=== PATIENT | female | born 1930 | race Two or more races ===

== ENCOUNTER 2019-06-29 13:46 | Inpatient (IN) | payer MEDICARE, BC ==
[~2019-06-29] VITALS: Ht 160 cm; Wt 82.6 kg
[~2019-06-29 13:46] MED LIST: ATEN50TA; FURO40TA4; LISI10TA2 PO
[2019-06-29 14:39] LABS: BASO % 1 % (0-3); EOS % 0 % (0-3); HEMATOCRIT 40.7 % (36.0-47.0); HEMOGLOBIN 13.7 g/dL (12.0-15.5); LYMPH # 0.6 x10^3/uL (1.0-4.8); LYMPH % 18 % (24-48); MEAN CORPUSCULAR HEMOGLOBIN 32 pg (25-35); MEAN CORPUSCULAR HGB CONC 34 g/dL (31-37); MEAN CORPUSCULAR VOLUME 95 fL (79-100); MONO # 0.2 x10^3/uL (0.0-1.1); MONO % 7 % (0-9); NEUT # 2.6 x10^3/uL (1.8-7.7); NEUT % 75 % (31-73); PLATELET COUNT 130 x10^3/uL (140-400); RED BLOOD COUNT 4.28 x10^6/uL (3.50-5.40); RED CELL DISTRIBUTION WIDTH 13.7 % (11.5-14.5); WHITE BLOOD COUNT 3.5 x10^3/uL (4.0-11.0)
--- NOTE | 2019-06-29 14:49 | EKG ---
[facility] [address] [place] [address] Test Date: 2019-06-29 Test Time: 14:14:28 Pat Name: VALERI RENE Department: Room: Gender: F Inside Technical Sales Representative: : 1930 Requested By: ROBB LESTER Order Number: [id number] Reading MD: Mras Hansen MD Measurements Intervals [place] Rate: 63 P: 37 SC: 188 QRS: -27 QRSD: 80 T: 12 QT: 428 QTc: 441 Interpretive Statements SINUS RHYTHM LEFTWARD AXIS NON SPECIFIC T ABNORMALITY Electronically Signed On 07-06-2019 11:34:39 CDT by Mars Hansen MD
[2019-06-29 14:52] LABS: CALCIUM 9.8 mg/dL (8.5-10.1); GFR 52.6; POTASSIUM 4.1 mmol/L (3.5-5.1)
--- NOTE | 2019-06-29 14:53 | RAD ---
EXAM: Head CT without contrast. HISTORY: Syncope. TECHNIQUE: Computed tomographic images of the head were obtained without contrast. *One or more of the following individualized dose reduction techniques were utilized for this examination: 1. Automated exposure control. 2. Adjustment of the mA and/or kV according to patient size. 3. Use of iterative reconstruction technique. COMPARISON: 04/21/2019. FINDINGS: There is no acute or subacute extra-axial or intraparenchymal hemorrhage. There is no mass effect or midline shift. There is no hydrocephalus. There are areas of decreased attenuation within the cerebral white matter, nonspecific and likely related to chronic small vessel disease. There is cerebral volume loss. The visualized portions of the orbits, paranasal sinuses and mastoid air cells are unremarkable. No suspicious calvarial lesion is seen. IMPRESSION: 1. No acute intracranial finding. Note is made that MRI is more sensitive for acute infarction. 2. Decreased attenuation within the cerebral white matter, a nonspecific finding likely due to chronic small vessel disease. Electronically signed by: Nubia Colon MD (06/29/2019 2:50 PM) [facility]
--- NOTE | 2019-06-29 14:53 | RAD ---
EXAM: Chest, single view. HISTORY: Syncope. COMPARISON: 04/21/2019 FINDINGS: A frontal view of the chest obtained. There is no infiltrate, pleural effusion or pneumothorax. The heart is normal in size for portable technique. IMPRESSION: No acute pulmonary finding. Electronically signed by: Nubia Colon MD (06/29/2019 2:51 PM) [facility]
--- NOTE | 2019-06-29 15:04 | PHYS DOC ---
Past Medical History Past Medical History: High Cholesterol, Hypertension, Other Additional Past Medical Histor: syconpe Past Surgical History: Knee Replacement Alcohol Use: None Drug Use: None Adult General Chief Complaint Chief Complaint: SYNCOPE HPI HPI Patient is a 88 year old female who presents with complaining of passing out. Patient was sitting on the chair and complaining of feeling of nausea. Patient's daughter states her face became stiff and her eyes was rolling back without biting her tongue or shaking of extremity that last about 30 seconds and then opened her eyes and stated that she was fine. Patient denies chest pain, shortness of breath, focal neuro deficit, headache, nausea and vomiting at this time. Patient had 1 episodes of the same problem at the end of March and was admitted at Hospital with negative evaluation and had 2 days of negative heart monitor. Patient denies history of seizure or head injury. Review of Systems Review of Systems Constitutional: Denies fever or chills [] Eyes: Denies change in visual acuity, redness, or eye pain [] HENT: Denies nasal congestion or sore throat [] Respiratory: Denies cough or shortness of breath [] Cardiovascular: No additional information not addressed in HPI [] GI: Denies abdominal pain, nausea, vomiting, bloody stools or diarrhea [] : Denies dysuria or hematuria [] Musculoskeletal: Denies back pain or joint pain [] Integument: Denies rash or skin lesions [] Neurologic: Denies headache, focal weakness or sensory changes [] Endocrine: Denies polyuria or polydipsia [] All other systems were reviewed and found to be within normal limits, except as documented in this note. Current Medications Current Medications Current Medications Medications (Trade) Dose Ordered Sig/Gladys Start Time Stop Time Status Last Admin Dose Admin Ceftriaxone Sodium (Rocephin) 1 gm 1X ONCE 06/29/19 16:00 06/29/19 16:01 DC Allergies Allergies Allergies Coded Allergies Type Severity Reaction Last Updated Verified Poymngi-Gwa-Xgk Reductase Inhibitor Allergy Mild NAUSEA 04/21/19 Yes Physical Exam Physical Exam Constitutional: Well developed, well nourished, mild distress, non-toxic appearance. [] HENT: Normocephalic, atraumatic. Eyes: PERRLA, EOMI, conjunctiva normal, no discharge. [] Neck: Normal range of motion, no tenderness, supple, no stridor. [] Cardiovascular:Heart rate regular rhythm, no murmur [] Lungs & Thorax: Bilateral breath sounds clear to auscultation [] Abdomen: Bowel sounds normal, soft, no tenderness, no masses, no pulsatile masses. [] Skin: Warm, dry, no erythema, no rash. [] Back: No tenderness, no CVA tenderness. [] Extremities: No tenderness, no cyanosis, no clubbing, ROM intact, no edema. [] Neurologic: Alert and oriented X 3, no focal deficits noted. [] Psychologic: Affect normal, judgement normal, mood normal. [] Current Patient Data Vital Signs Vital Signs Date Time Temp Pulse Resp B/P (MAP) Pulse Ox O2 Delivery O2 Flow Rate FiO2 06/29/19 15:39 59 20 111/75 (87) 97 Room Air 06/29/19 14:00 98.3 98.3 Lab Values Laboratory Tests Test 06/29/19 14:25 06/29/19 15:00 White Blood Count 3.5 x10^3/uL (4.0-11.0) L Red Blood Count 4.28 x10^6/uL (3.50-5.40) Hemoglobin 13.7 g/dL (12.0-15.5) Hematocrit 40.7 % (36.0-47.0) Mean Corpuscular Volume 95 fL (79-100) Mean Corpuscular Hemoglobin 32 pg (25-35) Mean Corpuscular Hemoglobin Concent 34 g/dL (31-37) Red Cell Distribution Width 13.7 % (11.5-14.5) Platelet Count 130 x10^3/uL (140-400) L Neutrophils (%) (Auto) 75 % (31-73) H Lymphocytes (%) (Auto) 18 % (24-48) L Monocytes (%) (Auto) 7 % (0-9) Eosinophils (%) (Auto) 0 % (0-3) Basophils (%) (Auto) 1 % (0-3) Neutrophils # (Auto) 2.6 x10^3/uL (1.8-7.7) Lymphocytes # (Auto) 0.6 x10^3/uL (1.0-4.8) L Monocytes # (Auto) 0.2 x10^3/uL (0.0-1.1) Eosinophils # (Auto) 0.0 x10^3/uL (0.0-0.7) Basophils # (Auto) 0.0 x10^3/uL (0.0-0.2) Sodium Level 147 mmol/L (136-145) H Potassium Level 4.1 mmol/L (3.5-5.1) Chloride Level 108 mmol/L (98-107) H Carbon Dioxide Level 31 mmol/L (21-32) Anion Gap 8 (6-14) Blood Urea Nitrogen 16 mg/dL (7-20) Creatinine 1.0 mg/dL (0.6-1.0) Estimated GFR (Cockcroft-Gault) 52.6 BUN/Creatinine Ratio 16 (6-20) Glucose Level 105 mg/dL (70-99) H Calcium Level 9.8 mg/dL (8.5-10.1) Magnesium Level 2.2 mg/dL (1.8-2.4) Total Bilirubin 0.5 mg/dL (0.2-1.0) Aspartate Amino Transferase (AST) 30 U/L (15-37) Alanine Aminotransferase (ALT) 35 U/L (14-59) Alkaline Phosphatase 89 U/L (46-116) Creatine Kinase 122 U/L (26-192) Troponin I Quantitative < 0.017 ng/mL (0.000-0.055) Total Protein 6.8 g/dL (6.4-8.2) Albumin 3.4 g/dL (3.4-5.0) Albumin/Globulin Ratio 1.0 (1.0-1.7) Urine Collection Type Unknown Urine Color Yellow Urine Clarity Clear Urine pH 6.0 Urine Specific [place] 1.015 Urine Protein Negative mg/dL (NEG-TRACE) Urine Glucose (UA) Negative mg/dL (NEG) Urine Ketones (Stick) Negative mg/dL (NEG) Urine Blood Negative (NEG) Urine Nitrite Negative (NEG) Urine Bilirubin Negative (NEG) Urine Urobilinogen Dipstick 0.2 mg/dL (0.2 mg/dL) Urine Leukocyte Esterase Moderate (NEG) Urine RBC 0 /HPF (0-2) Urine WBC 5-10 /HPF (0-4) Urine Squamous Epithelial Cells Mod /LPF Urine Bacteria 0 /HPF (0-FEW) Urine Mucus Slight /LPF Laboratory Tests 06/29/19 14:25 Laboratory Tests 06/29/19 14:25 EKG EKG EKG interpreted by me. EKG at 1440 showed normal sinus rhythm, left fourth axis, nonspecific T-wave abnormalities, no acute ST and T-wave abnormalities. Radiology/Procedures Radiology/Procedures [][facility] [id number] [place] [address] IMAGING REPORT Signed PATIENT: VALERI RENE ACCOUNT: [id number] : 1930 LOCATION: ER AGE: 88 SEX: F EXAM STATUS: REG ER ORD. PHYSICIAN: ROBB LESTER MD REASON: syncope,15 PROCEDURE: PORTABLE CHEST 1V EXAM: Chest, single view. HISTORY: Syncope. COMPARISON: 04/21/2019 FINDINGS: A frontal view of the chest obtained. There is no infiltrate, pleural effusion or pneumothorax. The heart is normal in size for portable technique. IMPRESSION: No acute pulmonary finding. Electronically signed by: Nubia Vegas MD (06/29/2019 2:51 PM) [place] [id number] DICTATED and SIGNED BY: NUBIA VEGAS MD DATE: 06/29/[address] [address] IMAGING REPORT Signed PATIENT: VALERI RENE ACCOUNT: [id number] : 1930 LOCATION: ER AGE: 88 SEX: F EXAM STATUS: REG ER ORD. PHYSICIAN: ROBB LESTER MD REASON: syncope PROCEDURE: CT HEAD WO CONTRAST EXAM: Head CT without contrast. HISTORY: Syncope. TECHNIQUE: Computed tomographic images of the head were obtained without contrast. *One or more of the following individualized dose reduction techniques were utilized for this examination: 1. Automated exposure control. 2. Adjustment of the mA and/or kV according to patient size. 3. Use of iterative reconstruction technique. COMPARISON: 04/21/2019. FINDINGS: There is no acute or subacute extra-axial or intraparenchymal hemorrhage. There is no mass effect or midline shift. There is no hydrocephalus. There are areas of decreased attenuation within the cerebral white matter, nonspecific and likely related to chronic small vessel disease. There is cerebral volume loss. The visualized portions of the orbits, paranasal sinuses and mastoid air cells are unremarkable. No suspicious calvarial lesion is seen. IMPRESSION: 1. No acute intracranial finding. Note is made that MRI is more sensitive for acute infarction. 2. Decreased attenuation within the cerebral white matter, a nonspecific finding likely due to chronic small vessel disease. Electronically signed by: Nubia Vegas MD (06/29/2019 2:50 PM) [place] [id number] DICTATED and SIGNED BY: NUBIA VEGAS MD DATE: 06/29/19 1781 Course & Med Decision Making Course & Med Decision Making Pertinent Labs and Imaging studies reviewed. (See chart for details) Evaluation of patient in ER showed 88-year-old female patient with recurrent syncopal episode. Patient had unremarkable physical exam, orthostatic vitals and labs except for mild UTI. Patient had another episode of syncope while she was in ER while and sitting. Patient requiring admission for further evaluation and treatment. Discussed with Dr. Egan who is in agreement with admission. Discussed findings and plan with patient and family, who acknowledge under standing and agreement. Dragon Disclaimer Dragon Disclaimer This electronic medical record was generated, in whole or in part, using a voice recognition dictation system. Departure Departure Impression: Primary Impression: Syncope Additional Impression: UTI (urinary tract infection) Disposition: ADMITTED INPATIENT Admitting Physician: ANKIT (Dr. Egan accepted admission at 1605) Condition: IMPROVED Referrals: UNKNOWN PCP NAME (PCP) Problem Qualifiers Primary Impression: Syncope Syncope type: unspecified Qualified Codes: R55 - Syncope and collapse Additional Impression: UTI (urinary tract infection) Urinary tract infection type: site unspecified Hematuria presence: without hematuria Qualified Codes: N39.0 - Urinary tract infection, site not specified ROBB LESTER MD Jun 29, 2019 15:04
[2019-06-29 15:06] LABS: ALBUMIN 3.4 g/dL (3.4-5.0); MAGNESIUM 2.2 mg/dL (1.8-2.4); TOTAL BILIRUBIN 0.5 mg/dL (0.2-1.0); TOTAL PROTEIN 6.8 g/dL (6.4-8.2)
[2019-06-29 15:10] LABS: BILIRUBIN,URINE NEGATIVE (NEG); CLARITY,URINE CLEAR; COLOR,URINE YELLOW; NITRITE,URINE NEGATIVE (NEG); PROTEIN,URINE NEGATIVE (NEG-TRACE); UROBILINOGEN,URINE 0.2 mg/dL (0.2 mg/dL)
[2019-06-29 15:15] LABS: BACTERIA,URINE 0 /HPF (0-FEW); RBC,URINE 0 /HPF (0-2); SQUAMOUS EPITHELIAL CELL,UR MOD /LPF
[2019-06-29] MEDS ORDERED: cefTRIAXone IV Push 1 GM VIAL. IVP ONE (16:00)
[2019-06-29] MEDS ORDERED: POTA10TA12 PO (16:53)
[2019-06-29] MEDS ORDERED: MULT1TAB52 PO (16:54)
[2019-06-29 19:03] VITALS: BP 141/74
--- NOTE | 2019-06-29 20:40 | NUR ---
Patient's granddaughter, Yue, called out sfdc solution architect light stating patient was having "another episode". This nurse, went into room, patient's head leaned back, eyes closed as if she was asleep. Patient aroused by light sternal rub and name. Patient stated "[place] like I was asleep". Patient's granddaughter stated episode lasted about 10 seconds. Patient states she felt nauseous right before "falling asleep". Patient alert and oriented x4, after awoken. No complaints further complaints at this time. Dr. Jignesh clayton. Will continue to monitor.
--- NOTE | 2019-06-29 20:45 | HP ---
ADMIT DATE: 06/29/2019 CHIEF COMPLAINT: Syncope. HISTORY OF PRESENT ILLNESS: The patient is a pleasant 88-year-old female who keeps passing out. She was sitting in a chair. She complains of some nausea and passed out. The daughter states her face became stiff and her eyes were rolling back, lasted about 30 seconds. This also occurred in March. She was monitored for 2 days in the hospital at that time, but we were not able to discover what was causing it. I discussed the case with the ER physician. We are going to admit the patient and consult Cardiology and Neurology. PAST MEDICAL HISTORY: Previous syncope, hypertension, hyperlipidemia, and knee replacement. ALLERGIES: STATINS. FAMILY HISTORY: Coronary artery disease. SOCIAL HISTORY: She does not drink, smoke, or take drugs. She is retired. MEDICATIONS: Reviewed, please refer to the MRAD. REVIEW OF SYSTEMS: GENERAL: No history of weight change, weakness or fevers. SKIN: No bruising, hair changes or rashes. EYES: No blurred, double or loss of vision. NOSE AND THROAT: No history of nosebleeds, hoarseness or sore throat. HEART: No history of palpitations, chest pain or shortness of breath on exertion. LUNGS: Denies cough, hemoptysis, wheezing or shortness of breath. GASTROINTESTINAL: Denies changes in appetite, nausea, vomiting, diarrhea or constipation. GENITOURINARY: No history of frequency, urgency, hesitancy or nocturia. NEUROLOGIC: Denies history of numbness, tingling, tremor or weakness. PSYCHIATRIC: No history of panic, anxiety or depression. ENDOCRINE: No history of heat or cold intolerance, polyuria or polydipsia. EXTREMITIES: Denies muscle weakness, joint pain, pain on walking or stiffness. PHYSICAL EXAMINATION: VITALS: Within normal limits and are stable. GENERAL: No apparent distress. Alert and oriented. HEENT: Head is normocephalic, atraumatic, pupils were equally round and reactive to light and accommodation. NECK: Supple, no JVD, no thyromegaly was noted. LUNGS: Clear to auscultation in all lung james without rhonchi or wheezing. HEART: RRR, S1, S2 present. Peripheral pulses intact, no obvious murmurs were noted. ABDOMEN: Soft, nontender. Positive bowel sounds no organomegaly, normal bowel sounds. EXTREMITIES: Without any cyanosis, clubbing, or edema. Pedal pulses intact, Homans sign is negative. NEUROLOGIC: Normal speech, normal tone. A & O x3, moves all extremities, no obvious focal deficits. PSYCHIATRIC: Normal affect, normal mood. Stable. SKIN: No ulcerations or rashes, good skin turgor, no jaundice. VASCULAR: Good capillary refill, neurovascular bundle appears to be intact. LABORATORY DATA: White count is 3.5. Sodium is 147. Troponin is 0. ASSESSMENT AND PLAN: Syncope, rule out arrhythmia versus neurologic disease. The patient has been admitted. We will do cardiac monitoring. Consult Cardiology, consult Neurology. Home medications, deep vein thrombosis prophylaxis, physical therapy, occupational therapy, and IV fluids. JESS GUO DO DR: SCOTTY/ashanti JOB#: [id number] / [id number]
[2019-06-29] MEDS: POTASSIUM CHLORIDE 10 MEQ TABLET.ER. PO SCH (21:00)
[2019-06-29 23:18] VITALS: BP 147/68
[2019-06-30] VITALS (22 sets, daily range): BP systolic 103–150; BP diastolic 56–82
--- NOTE | 2019-06-30 00:16 | NUR ---
Late note input: After syncopal episode at 2039, reviewed tele monitor and noticed a pause during the time episode occurred. Blood pressure stable at 147/65. Called down to ICU to verify. Dr. Egan paged as well as cardiology. Received orders from Dr. Paolmo to keep patient NPO after midnight for possible tests in the morning and to continue to monitor. Patient had another episode around 2308. Again, another pause noted on Tele monitor. Patient arousable to name and light sternal rub. Blood pressure 130/63, heart rate [address] Palomo paged again. No response. Dr. Egan paged at 0009 after no response from Dr. Palomo. Dr. Egan gave ok to transfer to [facility].
--- NOTE | 2019-06-30 01:39 | NUR ---
Transferred from 6th floor room 650 for 10 second pause noted on tele monitor per report. Patient admit with Dx Syncope. Patient A/O x 4 on arrival. Pleasant. Denies pain or SOA. Skin WD&P. VSS. HR SB with rate of 57 on arrival. Quick combo pads in place. Resting in bed with call light at hand.
--- NOTE | 2019-06-30 03:19 | NUR ---
Spoke to Dr Palomo at this time. Patient had 18 seconds pause and unresponsive. Code Sudhir was called and then cancelled because patient became responsive after sternal rub and calling out her name. Orders to start Dopamine drip at 2.5 mcg/kg/min continuous. Do not titrate. Patient Alert and Orientated. "Oh did I do it again". VSS.
--- NOTE | 2019-06-30 03:29 | EKG ---
[facility] [address] [place] [address] Test Date: 2019-06-30 Test Time: 04:27:02 Pat Name: VALERI RENE Department: Room: 205 Gender: F Cloth Layer: MYLA : 1930 Requested By: SAROJ SNEED Order Number: [id number] Reading MD: Mars Hansen MD Measurements Intervals [place] Rate: 60 P: 53 DE: 196 QRS: -24 QRSD: 84 T: 5 QT: 452 QTc: 452 Interpretive Statements SINUS RHYTHM NON-SPECIFIC ST/T CHANGES Electronically Signed On 07-06-2019 11:37:45 CDT by Mars Hansen MD
[2019-06-30 08:57] LABS: PROTHROMBIN TIME PATIENT 12.6 SEC (11.7-14.0)
[2019-06-30] MEDS: MULTIVITAMIN with MINERAL TABLET. PO SCH (09:00)
[2019-06-30] MEDS: POTASSIUM CHLORIDE 10 MEQ TABLET.ER. PO SCH ×2 (09:00→21:18)
[2019-06-30] MEDS: FUROSEMIDE 40 MG TABLET. PO SCH (09:00)
[2019-06-30] MEDS: LISINOPRIL 10 MG TABLET PO SCH (09:00)
--- NOTE | 2019-06-30 09:32 | PDOC2 ---
CARDIAC CONSULT DATE OF CONSULT Date of Consult DATE: 06/30/19 TIME: 09:28 REASON FOR CONSULT Reason for Consult: syncope, bradycardia REFERRING PHYSICIAN Referring Physician: Jignesh SOURCE Source: Chart review, Patient HISTORY OF PRESENT ILLNESS HISTORY OF PRESENT ILLNESS This is a 88 yo female admitted for complains of passing out. She had 5 episodes of passing out yesterday. At times she had episodes of feeling flushed and nausea. No chest pain. No injuries related to her syncope. She did have episode where she rolled her eyes backward and became stiff. She had an 18 sec asystole as an inpt. No SOA. No focal symptoms nor hx of seizures. No bowel or bladder incontinence. PAST MEDICAL HISTORY Cardiovascular: HTN, Syncope, Hyperlipidemia CENTRAL NERVOUS SYSTEM: Other (No pertinent history) Musculoskeletal: Osteoarthritis Rheumatologic: No pertinent hx Infectious disease: No pertinent hx PAST SURGICAL HISTORY Past Surgical History: Total knee replacement (left) FAMILY HISTORY Family History: Hypertension SOCIAL HISTORY Smoke: No ALCOHOL: none Drugs: None Lives: with Family CURRENT MEDICATIONS CURRENT MEDICATIONS Current Medications Medications (Trade) Dose Ordered Sig/Gladys Route PRN Reason Start Time Stop Time Status Last Admin Dose Admin Ceftriaxone Sodium (Rocephin) 1 gm 1X ONCE IVP 06/29/19 16:00 06/29/19 16:01 DC 06/29/19 16:01 Dopamine HCl/ Dextrose 250 ml @ 0 mls/hr CONT PRN IV SEE I/O RECORD 06/30/19 03:15 06/30/19 03:43 ALLERGIES ALLERGIES: Coded Allergies: Lskukcl-Jib-Xiz Reductase Inhibitor (Verified Allergy, Mild, NAUSEA, 04/21/19) ROS Review of System 14 point ROS evaluated with pertinent positives noted per HPI PHYSICAL EXAM General: Alert, Oriented X3, Cooperative, No acute distress HEENT: Atraumatic, Mucous membr. moist/pink Lungs: Clear to auscultation, Normal air movement Heart: Regular rate (SR), Normal S1, Normal S2, Other (2/6 systolic murmur to LLS border) Abdomen: Soft, No tenderness Extremities: No cyanosis, No edema Skin: No breakdown, No significant lesion Neuro: Normal speech, Sensation intact Psych/Mental Status: Mental status NL, Mood NL MUSCULOSKELETAL: Osteoarthritic changes both hands VITALS/I&O VITALS/I&O: Vital Signs Date Time Temp Pulse Resp B/P (MAP) Pulse Ox O2 Delivery O2 Flow Rate FiO2 06/30/19 07:20 97.7 60 18 111/61 (78) 95 Room Air 97.7 I & O 06/29/19 06/29/19 06/30/19 15:00 23:00 07:00 Intake Total 0 ml Balance 0 ml LABS Lab: Laboratory Tests Test 06/29/19 14:25 06/29/19 15:00 06/30/19 08:35 White Blood Count 3.5 x10^3/uL (4.0-11.0) L Red Blood Count 4.28 x10^6/uL (3.50-5.40) Hemoglobin 13.7 g/dL (12.0-15.5) Hematocrit 40.7 % (36.0-47.0) Mean Corpuscular Volume 95 fL (79-100) Mean Corpuscular Hemoglobin 32 pg (25-35) Mean Corpuscular Hemoglobin Concent 34 g/dL (31-37) Red Cell Distribution Width 13.7 % (11.5-14.5) Platelet Count 130 x10^3/uL (140-400) L Neutrophils (%) (Auto) 75 % (31-73) H Lymphocytes (%) (Auto) 18 % (24-48) L Monocytes (%) (Auto) 7 % (0-9) Eosinophils (%) (Auto) 0 % (0-3) Basophils (%) (Auto) 1 % (0-3) Neutrophils # (Auto) 2.6 x10^3/uL (1.8-7.7) Lymphocytes # (Auto) 0.6 x10^3/uL (1.0-4.8) L Monocytes # (Auto) 0.2 x10^3/uL (0.0-1.1) Eosinophils # (Auto) 0.0 x10^3/uL (0.0-0.7) Basophils # (Auto) 0.0 x10^3/uL (0.0-0.2) Sodium Level 147 mmol/L (136-145) H Potassium Level 4.1 mmol/L (3.5-5.1) Chloride Level 108 mmol/L (98-107) H Carbon Dioxide Level 31 mmol/L (21-32) Anion Gap 8 (6-14) Blood Urea Nitrogen 16 mg/dL (7-20) Creatinine 1.0 mg/dL (0.6-1.0) Estimated GFR (Cockcroft-Gault) 52.6 BUN/Creatinine Ratio 16 (6-20) Glucose Level 105 mg/dL (70-99) H Calcium Level 9.8 mg/dL (8.5-10.1) Magnesium Level 2.2 mg/dL (1.8-2.4) Total Bilirubin 0.5 mg/dL (0.2-1.0) Aspartate Amino Transferase (AST) 30 U/L (15-37) Alanine Aminotransferase (ALT) 35 U/L (14-59) Alkaline Phosphatase 89 U/L (46-116) Creatine Kinase 122 U/L (26-192) Troponin I Quantitative < 0.017 ng/mL (0.000-0.055) Total Protein 6.8 g/dL (6.4-8.2) Albumin 3.4 g/dL (3.4-5.0) Albumin/Globulin Ratio 1.0 (1.0-1.7) Urine Collection Type Unknown Urine Color Yellow Urine Clarity Clear Urine pH 6.0 Urine Specific [place] 1.015 Urine Protein Negative mg/dL (NEG-TRACE) Urine Glucose (UA) Negative mg/dL (NEG) Urine Ketones (Stick) Negative mg/dL (NEG) Urine Blood Negative (NEG) Urine Nitrite Negative (NEG) Urine Bilirubin Negative (NEG) Urine Urobilinogen Dipstick 0.2 mg/dL (0.2 mg/dL) Urine Leukocyte Esterase Moderate (NEG) Urine RBC 0 /HPF (0-2) Urine WBC 5-10 /HPF (0-4) Urine Squamous Epithelial Cells Mod /LPF Urine Bacteria 0 /HPF (0-FEW) Urine Mucus Slight /LPF Prothrombin Time 12.6 SEC (11.7-14.0) Prothrombin Time INR 1.0 (0.8-1.1) Laboratory Tests 06/29/19 14:25 Laboratory Tests 06/29/19 14:25 ECHOCARDIOGRAM ECHOCARDIOGRAM <Conclusion> The left ventricle is normal size. The left ventricular systolic function is normal and the ejection fraction is within normal range. The Ejection Fraction is 55-60%. There is mild to moderate concentric left ventricular hypertrophy. There is no significant aortic valvular stenosis. Doppler and Color Flow revealed trace aortic regurgitation. Doppler and Color-flow revealed trace mitral regurgitation. Doppler and Color Flow revealed trace tricuspid regurgitation with an estimated PAP of 36 mmHg. DATE: 04/21/19 1509 ASSESSMENT/PLAN ASSESSMENT/PLAN 1. SSS with multiple syncope: 18 sec asystole 2. HTN: controlled 3. Seizure like episode: due to cerebral hypoperfusion Recommendations 1. PPM today, risks and benefits discussed and agreeable to proceed. 2. CT head without acute changes. No trauma related to her syncope. Neurology consult. RICHARDSON TAYLOR APRN Jun 30, 2019 09:32
[2019-06-30] MEDS: IV NORMAL SALINE 1000ML BAG 1,000 ML IV SCH (10:44)
[2019-06-30] MEDS ORDERED: LIDOCAINE 2%/EPI 1:100,000 20 ML VIAL. ONE (12:13)
[2019-06-30] MEDS ORDERED: fentaNYL PF VIAL 100 MCG/2 ML VIAL ONE (12:17)
[2019-06-30] MEDS ORDERED: MIDAZOLAM HCL/PF 2 MG/2 ML VIAL. ONE (12:17)
[2019-06-30] MEDS ORDERED: BACITRACIN 50,000 UNIT in IV NORMAL SALINE 250ML 250 ML IRR ONE (12:30)
[2019-06-30] MEDS ORDERED: IOHEXOL 300 MG/ML 100ML VIAL. ONE (12:37)
[2019-06-30] MEDS ORDERED: MIDAZOLAM HCL/PF 2 MG/2 ML VIAL. IV ONE (12:45)
[2019-06-30] MEDS ORDERED: fentaNYL PF VIAL 100 MCG/2 ML VIAL IV ONE (12:45)
[2019-06-30] MEDS ORDERED: IOHEXOL 300 MG/ML 100ML VIAL. IART ONE (12:45)
[2019-06-30] MEDS ORDERED: LIDOCAINE 2%/EPI 1:100,000 20 ML VIAL. IJ ONE (12:45)
--- NOTE | 2019-06-30 13:11 | PDOC ---
[employer] PROGRESS NOTE Chief Complaint Chief Complaint Syncope History of Present Illness History of Present Illness 06/30/19 Pt seen and examined at bedside Mild to moderate LV hypertrophy on ECG EF = 55-60% SSS with syncope on ECG Will proceed with PPM Charts and labs reviewed DW RN Vitals/I&O Vitals/I&O: Vital Signs Date Time Temp Pulse Resp B/P (MAP) Pulse Ox O2 Delivery O2 Flow Rate FiO2 06/30/19 12:45 16 06/30/19 10:27 97.6 61 114/63 (80) 96 Room Air 97.6 I & O 06/29/19 06/29/19 06/30/19 15:00 23:00 07:00 Intake Total 0 ml Balance 0 ml Physical Exam General: Alert, Oriented X3, Cooperative, No acute distress Heart: Other (sick sinus syndrome) Lungs: Clear Abdomen: Normal bowel sounds Extremities: No clubbing, No cyanosis Skin: No rashes, No breakdown Labs Labs: Laboratory Tests Test 06/29/19 14:25 06/29/19 15:00 06/30/19 08:35 White Blood Count 3.5 x10^3/uL (4.0-11.0) Red Blood Count 4.28 x10^6/uL (3.50-5.40) Hemoglobin 13.7 g/dL (12.0-15.5) Hematocrit 40.7 % (36.0-47.0) Mean Corpuscular Volume 95 fL (79-100) Mean Corpuscular Hemoglobin 32 pg (25-35) Mean Corpuscular Hemoglobin Concent 34 g/dL (31-37) Red Cell Distribution Width 13.7 % (11.5-14.5) Platelet Count 130 x10^3/uL (140-400) Neutrophils (%) (Auto) 75 % (31-73) Lymphocytes (%) (Auto) 18 % (24-48) Monocytes (%) (Auto) 7 % (0-9) Eosinophils (%) (Auto) 0 % (0-3) Basophils (%) (Auto) 1 % (0-3) Neutrophils # (Auto) 2.6 x10^3/uL (1.8-7.7) Lymphocytes # (Auto) 0.6 x10^3/uL (1.0-4.8) Monocytes # (Auto) 0.2 x10^3/uL (0.0-1.1) Eosinophils # (Auto) 0.0 x10^3/uL (0.0-0.7) Basophils # (Auto) 0.0 x10^3/uL (0.0-0.2) Sodium Level 147 mmol/L (136-145) Potassium Level 4.1 mmol/L (3.5-5.1) Chloride Level 108 mmol/L (98-107) Carbon Dioxide Level 31 mmol/L (21-32) Anion Gap 8 (6-14) Blood Urea Nitrogen 16 mg/dL (7-20) Creatinine 1.0 mg/dL (0.6-1.0) Estimated GFR (Cockcroft-Gault) 52.6 BUN/Creatinine Ratio 16 (6-20) Glucose Level 105 mg/dL (70-99) Calcium Level 9.8 mg/dL (8.5-10.1) Magnesium Level 2.2 mg/dL (1.8-2.4) Total Bilirubin 0.5 mg/dL (0.2-1.0) Aspartate Amino Transf (AST/SGOT) 30 U/L (15-37) Alanine Aminotransferase (ALT/SGPT) 35 U/L (14-59) Alkaline Phosphatase 89 U/L (46-116) Creatine Kinase 122 U/L (26-192) Troponin I Quantitative < 0.017 ng/mL (0.000-0.055) Total Protein 6.8 g/dL (6.4-8.2) Albumin 3.4 g/dL (3.4-5.0) Albumin/Globulin Ratio 1.0 (1.0-1.7) Urine Collection Type Unknown Urine Color Yellow Urine Clarity Clear Urine pH 6.0 Urine Specific [place] 1.015 Urine Protein Negative mg/dL (NEG-TRACE) Urine Glucose (UA) Negative mg/dL (NEG) Urine Ketones (Stick) Negative mg/dL (NEG) Urine Blood Negative (NEG) Urine Nitrite Negative (NEG) Urine Bilirubin Negative (NEG) Urine Urobilinogen Dipstick 0.2 mg/dL (0.2 mg/dL) Urine Leukocyte Esterase Moderate (NEG) Urine RBC 0 /HPF (0-2) Urine WBC 5-10 /HPF (0-4) Urine Squamous Epithelial Cells Mod /LPF Urine Bacteria 0 /HPF (0-FEW) Urine Mucus Slight /LPF Prothrombin Time 12.6 SEC (11.7-14.0) Prothromb Time International Ratio 1.0 (0.8-1.1) Thyroid Stimulating Hormone (TSH) 0.775 uIU/mL (0.358-3.74) Review of Systems Review of Systems: No nausea, no vomiting No chest pain, no palpitations Assessment and Plan Assessmemt and Plan Problems Medical Problems: (1) Syncope Status: Acute (2) UTI (urinary tract infection) Status: Acute Assessment Sick sinus syndrome Syncope Plan Cardiac monitoring PPM per cardiology PT/OT Wound care DVT prophylaxis Full code Comment Review of Relevant I have reviewed the following items stefano (where applicable) has been applied. Medications: Current Medications Medications (Trade) Dose Ordered Sig/Gladys Route PRN Reason Start Time Stop Time Status Last Admin Dose Admin Ceftriaxone Sodium (Rocephin) 1 gm 1X ONCE IVP 06/29/19 16:00 06/29/19 16:01 DC 06/29/19 16:01 Dopamine HCl/ Dextrose 250 ml @ 0 mls/hr CONT PRN IV SEE I/O RECORD 06/30/19 03:15 06/30/19 03:43 Cefazolin Sodium/ Dextrose 50 ml @ 100 mls/hr 1X ONCE IV 06/30/19 12:30 06/30/19 12:59 DC 06/30/19 12:30 Sodium Chloride 1,000 ml @ 60 mls/hr [id number] IV 06/30/19 10:30 06/30/19 10:44 Bacitracin 63251 unit/Sodium Chloride 250 ml @ 250 mls/hr 1X ONCE IRR 06/30/19 12:30 06/30/19 13:29 06/30/19 12:30 Heparin Sodium/ Sodium Chloride (HEPARIN for ARTERIAL LINE FLUSH) 1,000 unit 1X ONCE IART 06/30/19 12:45 06/30/19 12:46 DC 06/30/19 12:45 Midazolam HCl (Versed) 2 mg 1X ONCE IV 06/30/19 12:45 06/30/19 12:46 DC 06/30/19 12:45 Fentanyl Citrate (Fentanyl 2ml Vial) 100 mcg 1X ONCE IV 06/30/19 12:45 06/30/19 12:46 DC 06/30/19 12:45 Iohexol (Omnipaque 300 Mg/ml) 100 ml 1X ONCE IART 06/30/19 12:45 06/30/19 12:46 DC 06/30/19 12:45 Lidocaine/ Epinephrine (LIDOCAINE 2%-EPI 1:100,000 multi-dose) 20 ml 1X ONCE IJ 06/30/19 12:45 06/30/19 12:46 DC 06/30/19 12:45 JESS GUO III DO Jun 30, 2019 13:11
--- NOTE | 2019-06-30 13:55 | PDOC ---
MODERATE SEDATION ASSESSMENT RISKS/ALTERNATIVES Risks/Alternatives Risks and alternatives of this type of sedation and procedure discussed with: RISK/ALTERNATIVES: Patient H & P ON CHART H & P H & P on chart and reviewed for co-morbid conditions and appropriate labs. H&P ON CHART: Yes STATUS PREG STATUS ASSESSED: N/A MEDS/ALLERGIES REVIEWED Meds/Allergies Reviewed Medications and Allergies including time and route of recently administered narcotics and sedatives. MEDS/ALLERGIES REVIEWED: Yes ASA RATING ASA RATING: III AIRWAY ASSESSMENT Airway Assessment Airway patency, oral function limitations, presence of caps, crowns, dentures, partials, and ability to extend neck assessed. AIRWAY ASSESSMENT: Yes MALLAMPATI SCORE MALLAMPATI SCORE: II PRE-SEDATION ASSESSMENT PRE-SEDATION ASSESSMENT: Yes SAROJ SNEED MD Jun 30, 2019 13:55
[2019-06-30] MEDS ORDERED: NO ANTICOAGULANT THERAPY. MC PRN (14:00)
--- NOTE | 2019-06-30 14:14 | RAD ---
PORTABLE CHEST 1V Clinical indications: Post pacemaker placement COMPARISON: June 29, 2019. Findings: A bipolar atrioventricular pacemaker has been placed via a left subclavian approach. No pneumothorax or pleural effusion or pulmonary edema is seen. Mild left lung base atelectasis is seen. No lung consolidation is evident. Heart size is normal. Mediastinum and pulmonary vasculature and both horace are unremarkable. IMPRESSION: Placement of a pacemaker without pneumothorax. Mild left lung base atelectasis. Electronically signed by: Juventino Myers MD (06/30/2019 2:11 PM) [id number]
--- NOTE | 2019-06-30 14:32 | CARD ---
MR#: [id number] Date of Study: 06/30/2019 Ordering Physician: SAROJ PALOMO, Referring Physician: SAROJ PALOMO, Tech: APPROVED REPORT PROCEDURES Successful implantation of Biotronik dual-chamber permanent pacemaker fl time: 4.2 mins dose: 8.9 gy/cm2 contrast: 20 ml moderate sedation: 58 mins INDICATIONS Sick sinus syndrome, syncope and 18 second pause PROCEDURE After explaining the risks, benefits, and alternative options, informed consent was obtained from the patient. The patient was brought to the cardiac catheterization lab and the left chest and shoulder were prepp ed and draped in a sterile manner. 30 mL of 2% lidocaine was infiltrated into the skin and subcutaneous tissues for local anesthesia. An incision was made over the left infraclavicular fossa and using blunt dissection and cautery a pocke t was created. Initial attempts to obtain venous access using radiological landmarks were unsuccessfu l. Contrast injections were performed for subclavian venogram and venous access successfully obtained . 8 and 6 [place] sheaths were inserted. A Biotronik bipolar active fixation right ventricular lead model Solia, serial #[id number] was advanced under fluoroscopy guidance and the tip was positioned in the right ventricle apex. Following this, a Biotronik bipolar active fixation right atrial lead model Solia serial #[id number] was positioned in t he right atrial appendage under fluoroscopy guidance. The leads were secured into place and attached to a Biotronik dual-chamber permanent pacemaker generator model Eluna 8 -Anel Muñoz, serial #[id number] . This was placed in the pocket that was subsequently closed in 3 layers. Hemostasis was secured. The right ventricular lead showed a sensing amplitude of 5.2 mV, impedance of 643 ohms and a threshol d of 0.6 V. The right atrial lead showed a sensing amplitude of 2.8 mV, impedance of 429 ohms and a t hreshold of 1.0 V. Patient tolerated the procedure well. There were no immediate complications. CONCLUSION Successful implantation of Biotronik dual-chamber permanent pacemaker for symptomatic sick sinus synd [place]. Signed by : Saroj Palomo, Electronically Approved : 06/30/2019 14:31:54
--- NOTE | 2019-06-30 15:51 | NUR ---
SS following for discharge planning. SS reviewed pt chart. Pt is from home and is currently on room air. PT/OT ordered. SS will continue to follow for discharge planning.
--- NOTE | 2019-06-30 17:13 | PDOC2 ---
NEUROLOGY CONSULT Date of Admission Date of Admission DATE: 06/30/19 TIME: 17:00 Reason for Consult Reason for Consult: IMPRESSION: Syncope. SSS with 18 seconds pause. HTN. HLD. UTI. RECOMMENDATIONS/PLAN: Cardiology consulted. pacemaker placement on 06/30/19. Lab: see orders. EEG if needed. HISTORY OF PRESENT ILLNESS This is a 88-year-old female patient with history of HTN and HLD had syncopal spell described as LOC, eyes fixed, and passing out. Her daughter stated her face became stiff and her eyes was rolling back without biting her tongue or shaking of extremity that last about 30 seconds then opened her eyes stating she was fine except feeling of some nausea. Patient denies chest pain, shortness of breath, focal neuro deficit, headache, nausea and vomiting at this time. She had 5 such episodes of passing out on , so she came to ER of [facility] to seek medical attention. PAST MEDICAL HISTORY Cardiovascular: HTN, Syncope, Hyperlipidemia CENTRAL NERVOUS SYSTEM: Other (No pertinent history) Musculoskeletal: Osteoarthritis Rheumatologic: No pertinent hx Infectious disease: No pertinent hx PAST SURGICAL HISTORY Total knee replacement (left) FAMILY HISTORY Hypertension. ALLERGIES Coded Allergies: Ccajmfu-Dxp-Pwo Reductase Inhibitor (Verified Allergy, Mild, NAUSEA, 04/21/19) MEDICATIONS: Refer to [facility] [place] SOCIAL HISTORY: Lives at home. Denies current smoking, drinking, and illicit drug use. REVIEW OF SYSTEMS: Constitutional: Obese. Head: No traumatic brain or head injury. Skin: No edema, or rash. Ear: Tinnitus? Eyes: No vision loss or color blindness. Nose: No bleeding or purulent discharges. Hearing: Mild hearing decrease. Neck: No injury. Breast: No history of cancer, masses,or discharges. Cardiac: HTN, HLD. Pulmonary: No COPD. GI: No GERD. Urinary/genital: UTI. Endocrinologic: No cousin face, craniofacial dysmorphism, polydactyly. Skeletomuscular: No muscular atrophy, deformity. Neurological: see HP. Psychiatric: Denies drug use/abuse. Otherwise, not [id number] review of systems. PHYSICAL EXAMINATION: General appearance is in subacute distress. HEENT: Normocephalic and nontraumatic. Eyes, nose, ears, and throat are unremarkable. Neck is supple. No lymphadenopathy. No crepitus. Cardiovascular: S1, S2, regular rate and rhythm. Pulmonary: Clear to auscultation bilaterally. Abdomen: Bowel sounds are positive. Abdomen is soft, nontender, and nondistended. Extremities: No rash, lesions, or edema. No restriction of range of motion NEUROLOGICAL EXAMINATION: Awake. Oriented to time, place and person. PERRL. EOMI. CN: no focal findings. Muscle tone: within normal. Muscle strength: 5 DTR: 2 Plantar reflex: Neutral response bilaterally Gait: not examined in bed. Sensory exam: no abnormal findings. No cerebellar signs elicited. F-T-N test accurate. Current Medications Current Medications Current Medications Ceftriaxone Sodium (Rocephin) 1 gm 1X ONCE IVP Last administered on 06/29/19at 16:01; Start 06/29/19 at 16:00; Stop 06/29/19 at 16:01; Status DC Lisinopril (Prinivil) 10 mg DAILY PO ; Start 06/30/19 at 09:00 Potassium Chloride (Klor-Con) 10 meq BID PO ; Start 06/29/19 at 21:00 Multivitamins (Thera M Plus) 1 tab DAILY PO ; Start 06/30/19 at 09:00 Furosemide (Lasix) 40 mg DAILY PO ; Start 06/30/19 at 09:00 Dopamine HCl/ Dextrose 250 ml @ 0 mls/hr CONT PRN IV SEE I/O RECORD Last administered on 06/30/19at 03:43; Start 06/30/19 at 03:15 Cefazolin Sodium/ Dextrose 50 ml @ 100 mls/hr 1X ONCE IV Last administered on 06/30/19at 12:30; Start 06/30/19 at 12:30; Stop 06/30/19 at 12:59; Status DC Sodium Chloride 1,000 ml @ 60 mls/hr [id number] IV Last administered on 06/30/19at 10:44; Start 06/30/19 at 10:30 Bacitracin 13103 unit/Sodium Chloride 250 ml @ 250 mls/hr 1X ONCE IRR Last administered on 06/30/19at 12:30; Start 06/30/19 at 12:30; Stop 06/30/19 at 13:29; Status DC Lidocaine/ Epinephrine (LIDOCAINE 2%-EPI 1:100,000 multi-dose) 20 ml STK-MED ONCE .ROUTE ; Start 06/30/19 at 12:13; Stop 06/30/19 at 12:13; Status DC Midazolam HCl (Versed) 2 mg STK-MED ONCE .ROUTE ; Start 06/30/19 at 12:17; Stop 06/30/19 at 12:17; Status DC Fentanyl Citrate (Fentanyl 2ml Vial) 100 mcg STK-MED ONCE .ROUTE ; Start 06/30/19 at 12:17; Stop 06/30/19 at 12:17; Status DC Iohexol (Omnipaque 300 Mg/ml) 100 ml STK-MED ONCE .ROUTE ; Start 06/30/19 at 12:37; Stop 06/30/19 at 12:37; Status DC Heparin Sodium/ Sodium Chloride (HEPARIN for ARTERIAL LINE FLUSH) 1,000 unit 1X ONCE IART Last administered on 06/30/19at 12:45; Start 06/30/19 at 12:45; Stop 06/30/19 at 12:46; Status DC Midazolam HCl (Versed) 2 mg 1X ONCE IV Last administered on 06/30/19at 12:45; Start 06/30/19 at 12:45; Stop 06/30/19 at 12:46; Status DC Fentanyl Citrate (Fentanyl 2ml Vial) 100 mcg 1X ONCE IV Last administered on 06/30/19at 12:45; Start 06/30/19 at 12:45; Stop 06/30/19 at 12:46; Status DC Iohexol (Omnipaque 300 Mg/ml) 100 ml 1X ONCE IART Last administered on 06/30/19at 12:45; Start 06/30/19 at 12:45; Stop 06/30/19 at 12:46; Status DC Lidocaine/ Epinephrine (LIDOCAINE 2%-EPI 1:100,000 multi-dose) 20 ml 1X ONCE IJ Last administered on 06/30/19at 12:45; Start 06/30/19 at 12:45; Stop 06/30/19 at 12:46; Status DC Info (No Anticoagulant Therapy) 1 ea CONT PRN PRN MC PER PROTOCOL; Start 06/30/19 at 14:00 Cefazolin Sodium/ Dextrose 50 ml @ 100 mls/hr 1X ONCE IV ; Start 06/30/19 at 18:30; Stop 06/30/19 at 18:59 Active Scripts Active Lisinopril 10 Mg Tablet 10 Mg PO DAILY Reported Multivitamins (Multivitamin) 1 Each Tablet 1 Tab PO DAILY Klor-Con 10 (Potassium Chloride) 10 Meq Tablet.er 1 Tab PO BID Furosemide 40 Mg Tablet 40 DAILY Allergies Allergies: Allergies Coded Allergies Type Severity Reaction Last Updated Verified Zbswdhe-Kwn-Ujg Reductase Inhibitor Allergy Mild NAUSEA 04/21/19 Yes ROS Review of System The patient denies any associated fevers, chills, headache, ear pain, rhinorrhea, sore throat, stiff neck, productive cough, chest pain, shortness of breath, back or flank pain, abdominal pain, nausea, vomiting, diarrhea, constipation, dysuria, rash, numbness, weakness, tingling, incontinence, difficulty ambulating, or diaphoresis. Physical Exam Physical Exam General: Well developed, well nourished, no acute distress, well appearing HEENT: Pupils equally round and reactive to light, EOMI, no discharge, normal conjunctiva Neck: Supple, no nuchal rigidity, no JVD, trachea midline, no tenderness Cardiac: RRR, no murmurs, no gallops, no rubs Chest/Lungs: CTAB, no wheeze, no rhonchi, no crackles Abdomen: soft, non-distended, no guarding, no peritoneal signs, non-tender Back: No tenderness Extremities: no edema, pulses intact, non-tender,capillary refill <3 sec bilateral upper and lower extremities, Neuro: Alert and oriented x 4, no focal deficits, normal speech Vitals Vitals: Vital Signs Date Time Temp Pulse Resp B/P (MAP) Pulse Ox O2 Delivery O2 Flow Rate FiO2 06/30/19 14:35 97.4 73 18 115/60 (78) 94 Room Air 97.4 06/30/19 13:15 3.0 Labs Labs Laboratory Tests Test 06/29/19 14:25 06/29/19 15:00 06/30/19 08:35 White Blood Count 3.5 x10^3/uL (4.0-11.0) Red Blood Count 4.28 x10^6/uL (3.50-5.40) Hemoglobin 13.7 g/dL (12.0-15.5) Hematocrit 40.7 % (36.0-47.0) Mean Corpuscular Volume 95 fL (79-100) Mean Corpuscular Hemoglobin 32 pg (25-35) Mean Corpuscular Hemoglobin Concent 34 g/dL (31-37) Red Cell Distribution Width 13.7 % (11.5-14.5) Platelet Count 130 x10^3/uL (140-400) Neutrophils (%) (Auto) 75 % (31-73) Lymphocytes (%) (Auto) 18 % (24-48) Monocytes (%) (Auto) 7 % (0-9) Eosinophils (%) (Auto) 0 % (0-3) Basophils (%) (Auto) 1 % (0-3) Neutrophils # (Auto) 2.6 x10^3/uL (1.8-7.7) Lymphocytes # (Auto) 0.6 x10^3/uL (1.0-4.8) Monocytes # (Auto) 0.2 x10^3/uL (0.0-1.1) Eosinophils # (Auto) 0.0 x10^3/uL (0.0-0.7) Basophils # (Auto) 0.0 x10^3/uL (0.0-0.2) Sodium Level 147 mmol/L (136-145) Potassium Level 4.1 mmol/L (3.5-5.1) Chloride Level 108 mmol/L (98-107) Carbon Dioxide Level 31 mmol/L (21-32) Anion Gap 8 (6-14) Blood Urea Nitrogen 16 mg/dL (7-20) Creatinine 1.0 mg/dL (0.6-1.0) Estimated GFR (Cockcroft-Gault) 52.6 BUN/Creatinine Ratio 16 (6-20) Glucose Level 105 mg/dL (70-99) Calcium Level 9.8 mg/dL (8.5-10.1) Magnesium Level 2.2 mg/dL (1.8-2.4) Total Bilirubin 0.5 mg/dL (0.2-1.0) Aspartate Amino Transf (AST/SGOT) 30 U/L (15-37) Alanine Aminotransferase (ALT/SGPT) 35 U/L (14-59) Alkaline Phosphatase 89 U/L (46-116) Creatine Kinase 122 U/L (26-192) Troponin I Quantitative < 0.017 ng/mL (0.000-0.055) Total Protein 6.8 g/dL (6.4-8.2) Albumin 3.4 g/dL (3.4-5.0) Albumin/Globulin Ratio 1.0 (1.0-1.7) Urine Collection Type Unknown Urine Color Yellow Urine Clarity Clear Urine pH 6.0 Urine Specific [place] 1.015 Urine Protein Negative mg/dL (NEG-TRACE) Urine Glucose (UA) Negative mg/dL (NEG) Urine Ketones (Stick) Negative mg/dL (NEG) Urine Blood Negative (NEG) Urine Nitrite Negative (NEG) Urine Bilirubin Negative (NEG) Urine Urobilinogen Dipstick 0.2 mg/dL (0.2 mg/dL) Urine Leukocyte Esterase Moderate (NEG) Urine RBC 0 /HPF (0-2) Urine WBC 5-10 /HPF (0-4) Urine Squamous Epithelial Cells Mod /LPF Urine Bacteria 0 /HPF (0-FEW) Urine Mucus Slight /LPF Prothrombin Time 12.6 SEC (11.7-14.0) Prothromb Time International Ratio 1.0 (0.8-1.1) Thyroid Stimulating Hormone (TSH) 0.775 uIU/mL (0.358-3.74) Laboratory Tests Test 06/30/19 08:35 Prothrombin Time 12.6 SEC (11.7-14.0) Prothromb Time International Ratio 1.0 (0.8-1.1) Thyroid Stimulating Hormone (TSH) 0.775 uIU/mL (0.358-3.74) ANNY PENNY MD Jun 30, 2019 17:13
[2019-07-01 03:00] VITALS: BP 153/91
[2019-07-01] MEDS: IV NORMAL SALINE 1000ML BAG 1,000 ML IV SCH (03:10)
[2019-07-01 07:00] VITALS: BP 135/82
[2019-07-01] MEDS: POTASSIUM CHLORIDE 10 MEQ TABLET.ER. PO SCH (08:55)
[2019-07-01] MEDS: LISINOPRIL 10 MG TABLET PO SCH (08:55)
[2019-07-01] MEDS: FUROSEMIDE 40 MG TABLET. PO SCH (08:55)
[2019-07-01] MEDS: MULTIVITAMIN with MINERAL TABLET. PO SCH (08:55)
--- NOTE | 2019-07-01 09:26 | RAD ---
EXAM: Chest, 2 views. HISTORY: Pacemaker placement. COMPARISON: 06/30/2019. FINDINGS: 2 views of the chest are obtained. There is a left cardiac pacemaker with leads overlying expected position. There is no infiltrate or pleural effusion. There is no pneumothorax. The heart is normal in size. IMPRESSION: Dual lead left cardiac pacemaker overlying expected position. Electronically signed by: Nubia Colon MD (07/01/2019 9:23 AM) [id number]
--- NOTE | 2019-07-01 09:47 | PDOC ---
[employer] PROGRESS NOTE Chief Complaint Chief Complaint Syncope History of Present Illness History of Present Illness 07/01/19 Patient seen and examined Discussed with physical therapy Patient is doing better She refuses home health PPM placement completed on 06/30 Recommended discharge today Charts and labs reviewed EVELIA LANDRY 06/30/19 Pt seen and examined at bedside Mild to moderate LV hypertrophy on ECG EF = 55-60% SSS with syncope on ECG Will proceed with PPM Charts and labs reviewed EVELIA LANDRY Vitals/I&O Vitals/I&O: Vital Signs Date Time Temp Pulse Resp B/P (MAP) Pulse Ox O2 Delivery O2 Flow Rate FiO2 07/01/19 08:55 64 135/82 07/01/19 07:00 98.2 16 98 Room Air 98.2 06/30/19 20:00 2.0 I & O 06/30/19 06/30/19 07/01/19 14:59 22:59 06:59 Intake Total 240 ml 700 ml Balance 240 ml 700 ml Physical Exam General: Alert, Oriented X3, Cooperative, No acute distress Heart: Regular rate (SR), Normal S1, Normal S2, Other (2/6 systolic murmur to LLS border) Lungs: Clear Abdomen: Soft, No tenderness Extremities: No cyanosis, No edema Skin: No breakdown, No significant lesion Review of Systems Review of Systems: No nausea, no vomiting No chest pain, no palpitations Assessment and Plan Assessmemt and Plan Problems Medical Problems: (1) Syncope Status: Acute (2) UTI (urinary tract infection) Status: Acute Assessment Status post prior pacemaker placement Sick sinus syndrome Syncope Plan Cardiac monitoring PT/OT Wound care DVT prophylaxis Full code Discharge if approved by cardiology Comment Review of Relevant I have reviewed the following items stefano (where applicable) has been applied. Medications: Current Medications Medications (Trade) Dose Ordered Sig/Gladys Route PRN Reason Start Time Stop Time Status Last Admin Dose Admin Cefazolin Sodium/ Dextrose 50 ml @ 100 mls/hr 1X ONCE IV 06/30/19 12:30 06/30/19 12:59 DC 06/30/19 12:30 Sodium Chloride 1,000 ml @ 60 mls/hr [id number] IV 06/30/19 10:30 07/01/19 03:10 Bacitracin 64370 unit/Sodium Chloride 250 ml @ 250 mls/hr 1X ONCE IRR 06/30/19 12:30 06/30/19 13:29 DC 06/30/19 12:30 Heparin Sodium/ Sodium Chloride (HEPARIN for ARTERIAL LINE FLUSH) 1,000 unit 1X ONCE IART 06/30/19 12:45 06/30/19 12:46 DC 06/30/19 12:45 Midazolam HCl (Versed) 2 mg 1X ONCE IV 06/30/19 12:45 06/30/19 12:46 DC 06/30/19 12:45 Fentanyl Citrate (Fentanyl 2ml Vial) 100 mcg 1X ONCE IV 06/30/19 12:45 06/30/19 12:46 DC 06/30/19 12:45 Iohexol (Omnipaque 300 Mg/ml) 100 ml 1X ONCE IART 06/30/19 12:45 06/30/19 12:46 DC 06/30/19 12:45 Lidocaine/ Epinephrine (LIDOCAINE 2%-EPI 1:100,000 multi-dose) 20 ml 1X ONCE IJ 06/30/19 12:45 06/30/19 12:46 DC 06/30/19 12:45 Cefazolin Sodium/ Dextrose 50 ml @ 100 mls/hr 1X ONCE IV 06/30/19 18:30 06/30/19 18:59 DC 06/30/19 18:20 JESS GUO III DO Jul 01, 2019 09:46
[2019-07-01 11:00] VITALS: BP 107/70
--- NOTE | 2019-07-01 11:17 | SNU/HH DC ---
DISCHARGE WITH HOME HEALTH DISCHARGE INFORMATION: Final Diagnosis: Problems Medical Problems: (1) Syncope Status: Acute (2) UTI (urinary tract infection) Status: Acute Condition on Discharge: Stable CODE STATUS: Code Status: Full HOME HEALTH: Face to Face: I certify this patient is under my care and that I, or a nurse practitioner or physician's infertility medical assistant working with me, had a face to face encounter that meets the physician face to face encounter requirements with this patient on []. Medical Complications: CHF RN For Eval/Treatment: Yes Physical Therapy For: Evalulation/Treatment Occupational Therapy For: Evaluation/Treatment Home Health Aide For: Self-care FACTORY MAINTENANCE TECHNICIAN For: Community Resources Pt Meets Homebound Status: Extreme weakness w/ amb. POST DISCHARGE ORDERS: Activity Instructions for Disc: No restrictions Weight Bearing Status after Di: As tolerated DIET AFTER DISCHARGE: Cardiac CHECKS AFTER DISCHARGE: Checks after discharge: Check blood press - daily, Weigh Yourself Daily TREATMENT/EQUIPMENT ORDERS: Adaptive Equipment Issued: None CERTIFICATION STATEMENT: Certification Statement: Certification Statement: Based on the above finding, I certify that this patient is confined to the home and needs intermittent nursing home care, physical therapy and/or speech therapy, or continues to need occupational therapy.~ This patient is under my care, and I have initiated the establishment of the plan of care.~ This patient will be followed by myself or a community physician who will periodically review the plan of care. Home Meds Active Scripts Lisinopril (LISINOPRIL) 10 Mg Tablet, 10 MG PO DAILY for htn, #60 TAB Prov:AYDEE VELIZ MD 04/23/19 Reported Medications Multivitamin (MULTIVITAMINS) 1 Each Tablet, 1 TAB PO DAILY for supplement, #90 TAB 3 Refills 06/29/19 Potassium Chloride (KLOR-CON 10) 10 Meq Tablet.er, 1 TAB PO BID for supplement, #30 TAB 5 Refills 06/29/19 Furosemide (FUROSEMIDE) 40 Mg Tablet, 40 DAILY for hypertension 04/21/19 JESS GUO III DO Jul 01, 2019 11:17
--- NOTE | 2019-07-01 13:31 | NUR ---
SS following up with discharge planning. Discharge order on the chart for home with home healthcare. Nurse navigator met with pt to discuss home healthcare and home healthcare options. Pt agreeable to [facility], ; fax [phone]. Referral and discharge orders phoned and faxed to [facility]. Pt's RN notified.
--- NOTE | 2019-07-01 13:43 | PDOC ---
CARDIO Progress Notes Date and Time Date of Service 07/01/19 Time of Evaluation 1310 Subjective Subjective: No Chest Pain, No shortness of breath, No Palpitations, Other (ready to go home) Vitals Vitals Vital Signs Date Time Temp Pulse Resp B/P (MAP) Pulse Ox O2 Delivery O2 Flow Rate FiO2 07/01/19 11:00 98.0 64 18 107/70 (82) 96 Room Air 98.0 06/30/19 20:00 2.0 Weight Weight [ ] Input and Output Intake and Output Intake and Output 07/01/19 07:00 Intake Total 940 ml Balance 940 ml Intake Oral 940 ml # Voids 4 Physical Exam HEENT: Neck Supple W Full Motion Chest: Symmetric LUNGS: Clear to Auscultation, Other (left chest PPM insertion site soft, clean, and dry. Dressing removed. Incision well approximated, steri strips intact) Heart: S1S2, RRR (paced with underlying SR) Abdomen: Soft N/T Extremities: No Edema, Other (left arm immobilizer intact) Neurology: alert, oriented, follow commands Assessment Assessment 1. SSS with multiple syncope; s/p successful implantation of Biotronik dual- chamber permanent pacemaker. Post op CXR WNL and device check with normal function 2. HTN: controlled 3. Seizure like episode: due to cerebral hypoperfusion Recommendations Post op discharge instruction reviewed- verbalized an understanding May discharge from a CV standpoint and f/u in our office for wound check in 2 weeks as scheduled. JOSR MEEK APRN Jul 01, 2019 13:43
--- NOTE | 2019-07-01 14:30 | NUR ---
Discharge instructions reviewed with patient and family, post pacemaker instructions reviewed, follow up given. Patient discharging home with daughter and home health services.
--- NOTE | 2019-07-01 14:31 | PDOC ---
PROGRESS NOTES Assessment Assessment Syncope. SSS with 18 seconds pause. Feeling of abnormal sounds in head. HTN. HLD. UTI. RECOMMENDATIONS/PLAN: Pacemaker placement on 06/30/19. EEG can be obtained as outpatient. HISTORY OF PRESENT ILLNESS This is a 88-year-old female patient with history of HTN and HLD had syncopal spell described as LOC, eyes fixed, and passing out. Her daughter stated her face became stiff and her eyes was rolling back without biting her tongue or shaking of extremity that last about 30 seconds then opened her eyes stating she was fine except feeling of some nausea. Patient denies chest pain, shortness of breath, focal neuro deficit, headache, nausea and vomiting at this time. She had 5 such episodes of passing out on , so she came to ER of [facility] to seek medical attention. She stated she has been feeling abnormal sounds as bees' sounds in her head for a long time and never go away. PAST MEDICAL HISTORY Cardiovascular: HTN, Syncope, Hyperlipidemia CENTRAL NERVOUS SYSTEM: Other (No pertinent history) Musculoskeletal: Osteoarthritis Rheumatologic: No pertinent hx Infectious disease: No pertinent hx PAST SURGICAL HISTORY Total knee replacement (left) FAMILY HISTORY Hypertension. ALLERGIES Coded Allergies: Gkznmms-Mdz-Ihh Reductase Inhibitor (Verified Allergy, Mild, NAUSEA, 04/21/19) MEDICATIONS: Refer to [facility] SOCIAL HISTORY: Lives at home. Denies current smoking, drinking, and illicit drug use. REVIEW OF SYSTEMS: Constitutional: Obese. Head: No traumatic brain or head injury. Skin: No edema, or rash. Ear: Tinnitus? Eyes: No vision loss or color blindness. Nose: No bleeding or purulent discharges. Hearing: Mild hearing decrease. Neck: No injury. Breast: No history of cancer, masses,or discharges. Cardiac: HTN, HLD. Pulmonary: No COPD. GI: No GERD. Urinary/genital: UTI. Endocrinologic: No cousin face, craniofacial dysmorphism, polydactyly. Skeletomuscular: No muscular atrophy, deformity. Neurological: see HP. Psychiatric: Denies drug use/abuse. Otherwise, not [id number] review of systems. PHYSICAL EXAMINATION: General appearance is in subacute distress. HEENT: Normocephalic and nontraumatic. Eyes, nose, ears, and throat are unremarkable. Neck is supple. No lymphadenopathy. No crepitus. Cardiovascular: S1, S2, regular rate and rhythm. Pulmonary: Clear to auscultation bilaterally. Abdomen: Bowel sounds are positive. Abdomen is soft, nontender, and nondistended. Extremities: No rash, lesions, or edema. No restriction of range of motion NEUROLOGICAL EXAMINATION: Awake. Oriented to time, place and person. PERRL. EOMI. CN: no focal findings. Muscle tone: within normal. Muscle strength: 5 DTR: 2 Plantar reflex: Neutral response bilaterally Gait: not examined in bed. Sensory exam: no abnormal findings. No cerebellar signs elicited. F-T-N test accurate. Objective Objective Vital Signs Date Time Temp Pulse Resp B/P (MAP) Pulse Ox O2 Delivery O2 Flow Rate FiO2 07/01/19 11:00 98.0 64 18 107/70 (82) 96 Room Air 98.0 06/30/19 20:00 2.0 Intake and Output 07/01/19 06:59 Intake Total 940 ml Balance 940 ml Intake Oral 940 ml # Voids 4 Vitals Signs Vitals VS - Last 72 Hours, by Label Date Time Temp Pulse Resp B/P (MAP) Pulse Ox O2 Delivery O2 Flow Rate FiO2 07/01/19 11:00 98.0 64 18 107/70 (82) 96 Room Air 98.0 07/01/19 08:55 64 135/82 07/01/19 08:00 Nasal Cannula 07/01/19 07:00 98.2 64 16 135/82 (99) 98 Room Air 98.2 07/01/19 03:00 97.7 72 16 153/91 (111) 96 Room Air 97.7 06/30/19 23:00 98.4 68 16 141/72 (95) 93 Room Air 98.4 06/30/19 20:00 Nasal Cannula 2.0 06/30/19 19:00 98.2 74 16 120/62 (81) 95 Room Air 98.2 06/30/19 16:55 64 130/58 (82) 06/30/19 16:42 64 128/61 (83) 06/30/19 16:13 70 124/82 (96) 06/30/19 14:53 70 118/66 (83) 06/30/19 14:35 97.4 73 18 115/60 (78) 94 Room Air 97.4 06/30/19 14:28 72 115/60 (78) 06/30/19 14:13 72 103/65 (78) 06/30/19 13:58 78 117/62 (80) 06/30/19 13:43 80 114/63 (80) 06/30/19 13:28 80 150/69 (96) 06/30/19 13:15 80 14 98 Nasal Cannula 3.0 06/30/19 12:45 16 06/30/19 10:27 97.6 61 18 114/63 (80) 96 Room Air 97.6 06/30/19 08:00 Room Air 06/30/19 07:20 97.7 60 18 111/61 (78) 95 Room Air 97.7 Medication Medications Current Medications Cefazolin Sodium/ Dextrose 50 ml @ 100 mls/hr 1X ONCE IV Last administered on 06/30/19at 18:20; Start 06/30/19 at 18:30; Stop 06/30/19 at 18:59; Status DC Comment Review of Relevant I have reviewed the following items stefano (where applicable) has been applied. ANNY PENNY MD Jul 01, 2019 14:31
--- NOTE | 2019-07-02 08:43 | DS ---
DATE OF DISCHARGE: 07/01/2019 ADMISSION DIAGNOSIS: Syncope. DISCHARGE DIAGNOSIS: Postop day #1, permanent pacemaker placement. HOSPITAL COURSE: The patient is a pleasant 88-year-old female who presented with syncopal episode. We admitted her and did cardiac monitoring. Sure enough, she developed pauses. The biggest pause was 18 seconds. The next day, she went for permanent pacemaker placement. We watched her 1 more day yesterday, we saw her and examined her, she was doing great. We discharged to home with close outpatient followup. DISPOSITION: Home. ACTIVITY: As tolerated. DIET: Cardiac. MEDICATIONS: Please see the MRAD. TOTAL TIME: 34 minutes. JESS GUO DO DR: SCOTTY/ashanti JOB#: [id number] / [id number]
== END 2019-07-01 14:40 | disposition home health service (06) | DRG 243 ==
LOC: ER 13:46 → 6 SOUTH 15:45 → 2 NORTH 06-30 01:38
PROVIDERS: ADMIT Internal Medicine; ATTEND Internal Medicine
PROC: 0JH606Z Insertion of Pacemaker, Dual Chamber into Chest Subcutaneous Tissue and Fascia, Open Approach (ICD-10-PCS; principal; 2019-06-30)
PROC: 02HK3JZ Insertion of Pacemaker Lead into Right Ventricle, Percutaneous Approach (ICD-10-PCS; 2019-06-30)
PROC: 02H63JZ Insertion of Pacemaker Lead into Right Atrium, Percutaneous Approach (ICD-10-PCS; 2019-06-30)
DX: I49.5 Sick sinus syndrome (principal); N39.0 Urinary tract infection, site not specified; E78.5 Hyperlipidemia, unspecified; E78.00 Pure hypercholesterolemia, unspecified; M19.90 Unspecified osteoarthritis, unspecified site; I10 Essential (primary) hypertension; R56.9 Unspecified convulsions; Z82.49 Family history of ischemic heart disease and other diseases of the circulatory system; Z95.0 Presence of cardiac pacemaker; Z96.652 Presence of left artificial knee joint; Z88.8 Allergy status to other drugs, medicaments and biological substances
CPT/HCPCS: 33208; 36415; 70450; 71045; 71046; 80053; 81001; 82550; 83735; 84443; 84484; 85025; 85610; 87086; 93005; 96374; 99152; 99153; C1785; C1898; J0696; J1265; J1644; J2250; J3010; J3490; J7030; J7050; Q9967; 97535; 99285-25; G0378